=== PATIENT | female | born 1970 | race Caucasian/White ===

== ENCOUNTER → 2023-03-24 | Outpatient (CLI) | payer BC ==
[~2023-03-24] MED LIST: LEXISCAN IV ONE
== END | disposition home or self-care (01) ==
LOC: RAD 09:35
PROVIDERS: ATTEND Internal Medicine Interventional Cardiology
DX: I08.1 Rheumatic disorders of both mitral and tricuspid valves (principal); R07.9 Chest pain, unspecified; R06.02 Shortness of breath
CPT/HCPCS: 78452; 93306; 93017; A9500

== ENCOUNTER → 2023-04-06 | Outpatient (CLI) | payer BC | END | disposition home or self-care (01) | LOC: RAD 12:18 | PROVIDERS: ATTEND Internal Medicine Interventional Cardiology | DX: R07.9 Chest pain, unspecified (principal) | CPT/HCPCS: 93970 ==

== ENCOUNTER 2023-05-30 08:50 | Day surgery (SDC) | payer BC ==
[2023-05-23 11:36] VITALS: BP 116/80; PULSE 69; RESP 18; TEMP 98; O2SAT 99
[2023-05-23 12:38] LABS: BASOPHIL % 0.4 % (0.0-0.2); EOSINOPHIL # 0.1 10^3/uL (0.0-0.2); EOSINOPHIL % 1.3 % (0.0-5.0); HEMATOCRIT(ML) 41.6 % (36.0-46.0); HEMOGLOBIN 13.3 g/dL (12.0-15.0); LYMPHOCYTES # 2.08 10^3/uL1 (1.0-4.8); LYMPHOCYTES % 27.5 % (24.0-44.0); MEAN CORP HGB 32.7 pg (26-34); MEAN CORP VOLUME 102.2 fL (78-100); MONOCYTES # 0.4 10^3/uL (0.3-0.8); MONOCYTES % 5.2 % (5.0-12.0); NEUTROPHILS % 65.5 % (41.0-85.0); PLATELET COUNT 337 10^3/uL (150-400); RED BLOOD CELL 4.07 10^6/uL (4.00-5.20); RED CELL DISTRIBUTION WIDTH 12.7 % (11.5-14.5); WHITE BLOOD CELL 7.6 10^3/uL (4.5-11.0)
[2023-05-23 12:43] LABS: +ADD MANUAL DIFF(NO CHRG) NO
[2023-05-23 12:53] LABS: ALBUMIN(ML) 3.4 g/dL (3.4-5.0); ALBUMIN/GLOBULIN RATIO 1.03; ANION GAP 8.4; BUN/CREATININE RATIO 14.81 (10.0-20.0); CALCIUM 9.5 mg/dL (8.4-10.5); CARBON DIOXIDE 29.5 mmol/L (20.0-32); CREATININE SERUM 0.54 mg/dL (0.59-1.40); POTASSIUM 3.9 mmol/L (3.6-5.2)
[2023-05-23 13:18] LABS: PROTHROMBIN PROTIME 10.5 SEC (9.7-11.6)
[~2023-05-30] VITALS: Ht 175.3 cm; Wt 85.3 kg
[2023-05-30] VITALS (10 sets, daily range): BP systolic 114–147; BP diastolic 62–91; PULSE 70–83; RESP 16–18; TEMP 97.5–98.1; O2SAT 95–99
[~2023-05-30 08:50] MED LIST changes: +ATOG10TA PO; +GABA800T5 PO; +HYDR25TA PO; -LEXISCAN IV ONE; +METO25TA4 PO; +NITR0.4T26 SL; +NORT25CA PO; +NS 1000ML 1,000 ML IV SCH; +NS 1000ML 1,000 ML ONE; +PANT40TA3 PO; +PREG50CA PO; +SUBLIMAZE 100MCG/2ML ONE; +TRAM50TA PO; +VERSED ONE; +XYLOCAINE ONE
== END 2023-05-30 15:36 | disposition home or self-care (01) ==
LOC: SDC 08:50
PROVIDERS: ATTEND Internal Medicine Interventional Cardiology
DX: I25.110 Atherosclerotic heart disease of native coronary artery with unstable angina pectoris (principal); K21.9 Gastro-esophageal reflux disease without esophagitis; I87.2 Venous insufficiency (chronic) (peripheral); Z79.899 Other long term (current) drug therapy; Z79.01 Long term (current) use of anticoagulants; Z90.49 Acquired absence of other specified parts of digestive tract; Z98.890 Other specified postprocedural states; Z82.49 Family history of ischemic heart disease and other diseases of the circulatory system; Z72.89 Other problems related to lifestyle
CPT/HCPCS: 80053; 85025; 36415; 85610; 85730; 93005; 93458; 81025; 99153; 99152; J7030; J1644; C1894 ×3; C1769 ×3; A6258; J2250; J3010; A4618; C1760; E0617; Q9967

== ENCOUNTER → 2023-12-12 | Outpatient (CLI) | payer OTHER, BC ==
[~2023-12-12] MED LIST changes: -NS 1000ML 1,000 ML IV SCH; -NS 1000ML 1,000 ML ONE; -SUBLIMAZE 100MCG/2ML ONE; -VERSED ONE; -XYLOCAINE ONE
[2023-12-12 13:59] LABS: BASOPHIL % 0.3 % (0.0-0.2); EOSINOPHIL # 0.1 10^3/uL (0.0-0.2); EOSINOPHIL % 1.3 % (0.0-5.0); HEMATOCRIT(ML) 39.4 % (36.0-46.0); HEMOGLOBIN 12.5 g/dL (12.0-15.0); LYMPHOCYTES # 2.07 10^3/uL1 (1.0-4.8); LYMPHOCYTES % 26.5 % (24.0-44.0); MEAN CORP HGB 31.6 pg (26-34); MEAN CORP HGB CONCENTRATION 31.7 g/dL (33-36.5); MEAN CORP VOLUME 99.7 fL (78-100); MONOCYTES # 0.4 10^3/uL (0.3-0.8); MONOCYTES % 5.6 % (5.0-12.0); NEUTROPHIL # 5.2 10^3/uL (1.8-7.7); NEUTROPHILS % 66.2 % (41.0-85.0); PLATELET COUNT 312 10^3/uL (150-400); RED BLOOD CELL 3.95 10^6/uL (4.00-5.20); RED CELL DISTRIBUTION WIDTH 13.5 % (11.5-14.5); WHITE BLOOD CELL 7.8 10^3/uL (4.5-11.0)
[2023-12-12 14:31] LABS: +ADD MANUAL DIFF(NO CHRG) NO
[2023-12-12 14:32] LABS: ALBUMIN(ML) 3.6 g/dL (3.4-5.0); ALBUMIN/GLOBULIN RATIO 1.125; ANION GAP 11.9; BUN/CREATININE RATIO 14.51 (10.0-20.0); C-REACTIVE PROTEIN 0.21 mg/dL (0.00-5.00); CALCIUM 9.8 mg/dL (8.4-10.5); CREATININE SERUM 0.62 mg/dL (0.59-1.40); EST GFR, NON-AA 101.5 (>/=60); POTASSIUM 3.9 mmol/L (3.6-5.2)
== END | disposition home or self-care (01) ==
LOC: RAD 12:55
PROVIDERS: ATTEND Nurse Practitioner
DX: R22.41 Localized swelling, mass and lump, right lower limb (principal); M79.661 Pain in right lower leg
CPT/HCPCS: 36415; 80053; 85025; 85379; 86140; 93971